=== PATIENT | male | born 1960 | race Caucasian/White ===

== ENCOUNTER 2016-11-10 10:03 | Inpatient (IN) | payer OTHER ==
--- NOTE | 2016-10-16 08:53 | PAT Medication Instructions ---
Service Date Oct 16, 2016. Current Home Medication List Celecoxib (CeleBREX), 200 MG PO BID Cyanocobalamin (Vitamin B-12), 1,000 MCG PO QAM Enalapril (Vasotec), 10 MG PO QAM Folic Acid (Folvite), 1 MG PO QAM Krill Oil (Hm Megakrill 300 mg), 1 CAP PO QAM Leflunomide (Arava), 10 MG PO QAM Methotrexate (Methotrexate), 6 TAB PO THURSDAY Multivitamin (Multivitamin), 1 TAB PO QAM Sertraline (Zoloft), 50 MG PO QAM Medication Instructions For Your Scheduled Surgery - Hold the following medications 2 weeks prior to surgery: Krill Oil (Hm Megakrill 300 mg), 1 CAP PO QAM - Check with Rheumatology if okay to hold the dose prior to surgery: Methotrexate (Methotrexate), 6 TAB PO THURSDAY - Hold the following medications the morning of surgery: Multivitamin (Multivitamin), 1 TAB PO QAM Celecoxib (CeleBREX), 200 MG PO BID (otherwise okay to continue per surgeon) Folic Acid (Folvite), 1 MG PO QAM Enalapril (Vasotec), 10 MG PO QAM Cyanocobalamin (Vitamin B-12), 1,000 MCG PO QAM - Take the following medications the morning of surgery with a sip of water OTHERWISE NOTHING TO EAT OR DRINK AFTER MIDNIGHT: Sertraline (Zoloft), 50 MG PO QAM Leflunomide (Arava), 10 MG PO QAM If you have any questions please call us at [phone] (Tamara Dsouza PA-C ) or [phone] or [phone]
[2016-10-16 09:32] LABS: BASO % 0.7 %; BASO ABS # 0.04 K/uL (0-0.2); COMPLETE YES; EOS % 1.8 %; HEMATOCRIT 45.4 % (42-52); IG% 0.5 %; LYMPH % 23.3 %; MEAN CELL VOLUME 86.3 fL (80-100); MEAN CORPUSCULAR HEMOGLOBIN 29.5 pg (25-34); MEAN CORPUSCULAR HGB CONC 34.1 g/dl (32-36); MONO % 14.7 %; PLATELET COUNT 261 K/uL (130-400); RED BLOOD COUNT 5.26 M/uL (4.7-6.1)
--- NOTE | 2016-10-16 09:34 | DIAGNOSTIC IMAGING REPORT ---
CHEST PREADMISSION(PA/LAT) CLINICAL HISTORY: Preoperative evaluation COMPARISON STUDY: Chest radiograph April 11, 2013 FINDINGS: No pneumothorax or pleural effusion is present. There is mild elevation of the right hemidiaphragm. A 1 cm left lower lobe nodule is likely unchanged since CT of April 11, 2013. There is upper lobe predominant interstitial thickening. There is asymmetric left hilar prominence. Cardiac size is normal. There is a 2.5 cm irregular density within the left upper lung. IMPRESSION: 1. Upper lobe predominant interstitial thickening and left hilar prominence which may be due to lymphadenopathy. The findings suggest interstitial lung disease and could reflect an etiology such as sarcoidosis or other granulomatous process. In addition, there may be underlying emphysema. A chest CT is recommended. The 2.5 cm irregular density within left upper lung may reflect interstitial lung disease but can be assessed at time of chest CT to exclude a nodule. 2. 1 cm left lower lobe nodule which is likely due to benign given stability since prior abdominal CT. Electronically signed by: Tanvir Beckwith M.D. 10/16/2016 9:32 AM
[2016-10-16 10:13] LABS: BUN/CREATININE RATIO 27.7 (10-20); CREATININE 0.77 mg/dl (0.60-1.40); POTASSIUM 4.7 mmol/L (3.5-5.1)
[2016-10-16 10:36] LABS: CALCIUM 9.1 mg/dl (8.5-10.1)
[2016-11-10] VITALS (8 sets, daily range): BP systolic 121–169; BP diastolic 82–98; PULSE 68–103; TEMP 36.7–37.9; O2SAT 93–98; Ht 170.2 cm; Wt 88.5 kg
[~2016-11-10] VITALS: Ht 170.2 cm; Wt 88.5 kg
--- NOTE | 2016-11-10 07:37 | History & Physical Bridge Note ---
H&P Re-Evaluation Bridge Note: I have examined the patient, reviewed the History & Physical and in the interval since the performance of the History & Physical I have noted the following changes of clinical significance: No changes noted
--- NOTE | 2016-11-10 07:38 | History and Physical ---
History & Physical Date Nov 10, 2016. Chief Complaint back and leg pain History of Present Illness The patient is a 56 year old male with complaints of Past Medical/Surgical History Medical Problems: (1) Neck Surgery 2009 Additional History Hepatic Disease: No Endocrine Disorder: No Kidney Disease: No Hypertension: Yes Heart Disease: No Bleeding Tendencies: No Infectious Diseases: No Allergies Coded Allergies: No Known Allergies (Unverified , 10/16/16) Home Medications Scheduled Celecoxib (CeleBREX), 200 MG PO BID Cyanocobalamin (Vitamin B-12), 1,000 MCG PO QAM Enalapril (Vasotec), 10 MG PO QAM Folic Acid (Folvite), 1 MG PO QAM Krill Oil (Hm Megakrill 300 mg), 1 CAP PO QAM Leflunomide (Arava), 10 MG PO QAM Methotrexate (Methotrexate), 6 TAB PO THURSDAY Multivitamin (Multivitamin), 1 TAB PO QAM Sertraline (Zoloft), 50 MG PO QAM Physical Examination Skin: warm/dry, no rash Eyes: normal inspection, EOMI, sclerae normal ENT: normal ENT inspection, pharynx normal Head: normocephalic, atraumatic Neck: supple, no adenopathy, trachea midline Respiratory/Chest: lungs clear, normal breath sounds, no respiratory distress Cardiovascular: regular rate, rhythm, no edema, no murmur Abdomen / GI: normal bowel sounds, non tender Back: normal inspection Extremities: normal inspection, normal range of motion Neurologic/Psych: no motor/sensory deficits, alert, normal reflexes, oriented x 3 Diagnosis spinal stenosis Plan of Treatment decompression fusion L3-S1
[~2016-11-10 10:03] MED LIST: ATROPINE SULFATE 0.1 MG/ML 5ML SYR IV PRN; CEFAZOLIN 2000 MG/60 ML D5W IV SCH; CLB/200 PO; CYAN10005 PO; ENAL10TA88 PO; EpHEDrine SULFATE INJ 50 MG/ML AMP IV PRN; FENTANYL CITRATE INJ 50 MCG/1 ML 2 ML VIAL IV PRN; FOLI1TAB7 PO; HYDROmorphone INJ 1 MG/ML SYR IV PRN; KRIL1CAP11 PO; LACTATED RINGER'S 1000ML 1,000 ML IV SCH; LEFL20TA PO; METH2.5T PO; MULT-506 PO; ONDANSETRON INJ 2 MG/ML 2 ML VIAL IV PRN; SERT50TA PO
[2016-11-10] MEDS ORDERED: FENTANYL CITRATE INJ 50 MCG/1 ML 2 ML VIAL ONE ×2 (12:39→16:26)
[2016-11-10] MEDS ORDERED: MIDAZOLAM HCL 1 MG/ML 2ML VIAL ONE (12:40)
[2016-11-10] MEDS ORDERED: HYDROmorphone INJ 2 MG/ML SYR/VIAL ONE (13:49)
[2016-11-10] MEDS ORDERED: PROPOFOL IV EMULSION 10 MG/ML 20 ML VIAL IV ONE (14:29)
[2016-11-10] MEDS ORDERED: ONDANSETRON INJ 2 MG/ML 2 ML VIAL ONE (14:29)
[2016-11-10] MEDS ORDERED: NEOSTIGMINE METHYLSULFATE 1 MG/ML 10ML VIAL ONE (14:29)
[2016-11-10] MEDS ORDERED: GLYCOPYRROLATE INJ 0.2 MG/ML VIAL ONE (14:29)
[2016-11-10] MEDS ORDERED: LIDOCAINE HCL 2% 2 ML VIAL (20MG/ML) ONE ×2 (14:29)
[2016-11-10] MEDS ORDERED: DEXAMETHASONE SOD INJ 4 MG/ML VIAL ONE (14:29)
[2016-11-10] MEDS ORDERED: ROCURONIUM BROMIDE 10 MG/ML 5 ML VIAL ONE (14:31)
[2016-11-10] MEDS ORDERED: EpHEDrine SULFATE 50MG/5ML SYR ONE (14:47)
[2016-11-10] MEDS ORDERED: PHENYLEPHRINE 100MCG/ML 5ML SYR ONE (14:47)
[2016-11-10] MEDS ORDERED: SODIUM CHLORIDE 0.9% 1000ML 1,000 ML IV SCH (15:58)
--- NOTE | 2016-11-10 15:58 | DIAGNOSTIC IMAGING REPORT ---
INTRAOPERATIVE FLUOROSCOPIC IMAGES OF THE LUMBAR SPINE CLINICAL HISTORY: L3-S1 DECOMPRESSION/FUSION/INTERBODY COMPARISON STUDY: Lumbar spine MRI November 19, 2015. FLUOROSCOPY TIME: 30 seconds. FINDINGS: 3 fluoroscopic images demonstrate an L5-S1 discectomy with interbody spacer placement. There is a posterior decompression. Bilateral particle screws are noted at the L3, L4, L5 and S1 levels. There are interconnecting rods. Hardware is intact. IMPRESSION: Expected findings following L5-S1 discectomy and L3-S1 bilateral pedicle screw fusion. Electronically signed by: Tanvir Beckwith M.D. 11/10/2016 3:56 PM
--- NOTE | 2016-11-10 15:58 | [facility] Post Operative Brief Note ---
Immediate Operative Summary Operative Date Nov 10, 2016. Pre-Operative Diagnosis spinal stenosis Post-Operative Diagnosis same Procedure(s) Performed L3-S1 Lumbar Laminectomy/Decompression; Posterolateral Fusion; Pedicle Screw Fixation; Application of Interbody Device; Application of AutoGRAFT and Bone Morphogentic Protein Surgeon Dr. Kenan Holley Clinical Academic Allergist Surgeon(s) Richard Arellano PA-c Estimated Blood Loss 600ML Findings stenosis/spondy Specimens NO SPECIMEN PER SURGEON
[2016-11-10] MEDS ORDERED: NALOXONE HCL 0.4 MG/1 ML VIAL/CARP IV PRN ×2 (16:00)
[2016-11-10] MEDS ORDERED: METOCLOPRAMIDE HCL INJ 5 MG/ML 2 ML VIAL IV PRN (16:00)
[2016-11-10] MEDS ORDERED: ACETAMINOPHEN 500 MG TAB PO PRN (16:00)
[2016-11-10] MEDS ORDERED: BISACODYL 10 MG SUPP PR PRN (16:00)
[2016-11-10] MEDS ORDERED: hydrOXYzine HCL 25 MG TAB PO PRN (16:00)
[2016-11-10] MEDS ORDERED: PROMETHAZINE HCL INJ 12.5 MG in SODIUM CHLORIDE 0.9% 50ML 50 ML IV PRN (16:00)
[2016-11-10] MEDS ORDERED: SOD PHOSPHATE/SOD BIPHOSPHATE ENEMA 132 ML BTL PR PRN (16:00)
[2016-11-10] MEDS ORDERED: LORAZEPAM INJ 0.5 MG in SYRINGE 0.75 ML IV PRN (16:00)
[2016-11-10] MEDS ORDERED: DO NOT ADMINISTER PNEUMOCOCCAL VACCINE PRN ×2 (16:00)
[2016-11-10] MEDS ORDERED: DO NOT ADMINISTER FLU VACCINE PRN ×3 (16:00)
[2016-11-10] MEDS ORDERED: ACETAMINOPHEN IV 100 ML IV PRN (16:00)
[2016-11-10] MEDS ORDERED: FLOSEAL HEMOSTATIC MATRIX 10ML TOP ONE (16:00)
[2016-11-10] MEDS ORDERED: ONDANSETRON INJ 2 MG/ML 2 ML VIAL IV PRN (16:00)
[2016-11-10] MEDS ORDERED: LORAZEPAM 0.5 MG TAB PO PRN (16:00)
[2016-11-10] MEDS ORDERED: BACITRACIN 50000 UNIT VIAL IR ONE (16:07)
[2016-11-10] MEDS ORDERED: BUPIVACAINE/EPINEPHRINE 0.5% MPF 1:200,000 30 ML VIAL INJ ONE (16:10)
[2016-11-10] MEDS ORDERED: HYDROmorphone HCL 0.5MG/ML 50 ML CASSETTE ONE (16:12)
--- NOTE | 2016-11-10 16:36 | Anesthesiology Progress Note ---
Anesthesia Post Op Note Date & Time Nov 10, 2016 at 16:36 Vital Signs Pain Intensity: 4 Vital Signs Past 12 Hours Date Time Temp Pulse Resp B/P Pulse Ox O2 Delivery O2 Flow Rate FiO2 11/10/16 10:29 36.9 68 18 169/98 94 Room Air Notes Mental Status: alert / awake / arousable, participated in evaluation Pt Amnestic to Procedure: Yes Nausea / Vomiting: adequately controlled Pain: adequately controlled Airway Patency, RR, SpO2: stable & adequate BP & HR: stable & adequate Hydration State: stable & adequate Anesthetic Complications: no major complications apparent
[2016-11-10] MEDS: HYDROmorphone HCL 0.5MG/ML 50 ML CASSETTE IV PRN ×3 (16:47→23:09)
[2016-11-10] MEDS: LACTATED RINGER'S 1000ML 1,000 ML IV SCH ×2 (17:35→22:36)
--- NOTE | 2016-11-10 18:08 | OPERATIVE REPORT ---
DATE OF OPERATION: 11/10/2016 PREOPERATIVE DIAGNOSES: Spinal stenosis, spondylolisthesis. POSTOPERATIVE DIAGNOSIS: Same. PROCEDURE PERFORMED: 1. Lumbar decompression, medial facetectomy, and foraminotomy L3-4, L4-5, L5-S1. 2. Posterior spinal fusion L3-4, L4-5, L5-S1. 3. Placement posterior segmental instrumentation using Orthros rods and screws L3-L4, L4-5, L5-S1. 4. Interbody fusion L5-S1. 5. Placement of PEEK cage 12 x 26 mm at L5-S1. 6. Placement of locally harvested morcellized autograft in posterior gutters. 7. Placement of Infuse collagen sponge combined with Mastergraft in the posterior gutters and Georgette bone graft in the interbody space. SURGEON: Dr. Kiran Holley. TRANSPORT OPERATIONS INSPECTOR: Melissa Arellano PA-C. Due to the complex nature of the procedure, the entire surgery was performed with the medical office assistant of THALIA Murrieta.? The marketing support assistant, under direct supervision, was involved in the actual performance of all aspects of the surgical procedure including hemostasis, tissue retraction and incision, instrument management, patient positioning, and wound closure. ANESTHESIA: General. DISPOSITION: The patient awakened and taken to PACU in stable condition. HISTORY OF PATIENT'S PROBLEMS: This is a 56-year-old male that presents with above-mentioned diagnosis. After failing an extensive course of nonoperative care, elected to undergo the above-mentioned procedure. Risks, benefits, pros, cons, and alternatives were outlined in detail preoperatively. DESCRIPTION OF PROCEDURE: The patient was met with preoperatively. The case was discussed and all questions were addressed. At that point the patient was taken back to operative suite and after undergoing successful general intubation by the department of anesthesia was placed in prone position on Shakir table atop Logan frame. All bony prominences were padded and the eyes were inspected to ensure there was no external pressure placed upon them. At this point, lumbar spine was prepped and draped in normal sterile fashion. Sharp dissection with the assistance of Bovie cautery performed down to and exposing the lamina and transverse processes of L3, L4, L5 and sacral ala bilaterally. From a caudal to cephalad fashion, complete laminectomy of L5, L4, L3 was performed addressing severe central and lateral recess disease. Pedicle screws were then placed in L3, L4, L5 and S1 levels bilaterally with the assistance of fluoroscopy and appropriate size junaid provisionally placed. Through a transforaminal approach on the left, a complete discectomy of L5-S1 was performed, endplates curetted to subcortical bleeding bone and a 12 x 26 mm PEEK cage filled with Georgette bone grafting tapped into position. Rods were then compressed, locked into final position bilaterally. A crosslink was locked into position. The transverse processes of L3, L4, L5 and sacral ala burred to subcortical bone. Infuse collagen sponge combined with Mastergraft and locally harvested morselized autograft was placed in the posterior gutters. A 7 flat STEPHANIE drain inserted. Incision closed with 1 Vicryl in the fascia, 2-0 Vicryl subcutaneously, 4-0 Monocryl for final skin closure. Steri-Strips and sterile dressing placed. The patient was awakened and taken to PACU in stable condition. I attest to the content of the Intraoperative Record and any orders documented therein. Any exceptio ns are noted below.
[2016-11-10] MEDS: DOCUSATE SODIUM/SENNA 50/8.6MG TAB PO SCH (20:41)
[2016-11-10] MEDS: CEFAZOLIN IV 2,000 MG in DEXTROSE 5% 50ML 50 ML IV SCH (21:31)
[2016-11-10] MEDS: DEXAMETHASONE INJ 6 MG in SYRINGE 0 ML IV SCH (21:32)
[2016-11-11 03:17] VITALS: BP 128/85; PULSE 82; TEMP 36.7; O2SAT 96
[2016-11-11] MEDS: LACTATED RINGER'S 1000ML 1,000 ML IV SCH (05:26)
[2016-11-11] MEDS: CEFAZOLIN IV 2,000 MG in DEXTROSE 5% 50ML 50 ML IV SCH (05:26)
[2016-11-11] MEDS: DEXAMETHASONE INJ 6 MG in SYRINGE 0 ML IV SCH ×2 (05:26→14:12)
[2016-11-11] MEDS ORDERED: HYDROmorphone INJ 1 MG/ML SYR IV PRN (06:00)
[2016-11-11] MEDS ORDERED: DC PCA SCH (06:00)
[2016-11-11 06:57] LABS: BASO % 0.1 %; BASO ABS # 0.01 K/uL (0-0.2); COMPLETE YES; HEMATOCRIT 37.6 % (42-52); IG% 0.7 %; LYMPH % 7.6 %; MEAN CELL VOLUME 86.2 fL (80-100); MEAN CORPUSCULAR HEMOGLOBIN 28.7 pg (25-34); MEAN CORPUSCULAR HGB CONC 33.2 g/dl (32-36); MEAN PLATELET VOLUME 12.3 fL (7.4-10.4); MONO % 8.1 %; NEUT % 83.5 %; PLATELET COUNT 240 K/uL (130-400); RED BLOOD COUNT 4.36 M/uL (4.7-6.1); WHITE BLOOD COUNT 15.83 K/uL (4.8-10.8)
[2016-11-11 07:30] VITALS: BP 135/76; PULSE 81; TEMP 36.9; O2SAT 97
[2016-11-11 07:33] LABS: BUN/CREATININE RATIO 18.9 (10-20); CALCIUM 8.2 mg/dl (8.5-10.1); CREATININE 1.1 mg/dl (0.60-1.40); POTASSIUM 4.1 mmol/L (3.5-5.1)
[2016-11-11] MEDS: OXYCODONE HCL IR 5 MG TAB (IMMEDIATE RELEASE) PO PRN ×4 (07:59→20:25)
--- NOTE | 2016-11-11 08:11 | Anesthesiology Progress Note ---
Anesthesia Post Op Note Date & Time Nov 11, 2016 at 08:10 Vital Signs Vital Signs Past 12 Hours Date Time Temp Pulse Resp B/P Pulse Ox O2 Delivery O2 Flow Rate FiO2 11/11/16 07:30 36.9 81 16 135/76 97 Room Air 11/11/16 03:17 36.7 82 16 128/85 96 Room Air 11/11/16 00:15 Room Air 11/10/16 23:30 36.8 99 18 121/84 94 Room Air Notes Mental Status: alert / awake / arousable, participated in evaluation Pt Amnestic to Procedure: Yes Nausea / Vomiting: adequately controlled Pain: adequately controlled Airway Patency, RR, SpO2: stable & adequate BP & HR: stable & adequate Hydration State: stable & adequate Anesthetic Complications: no major complications apparent
[2016-11-11] MEDS ORDERED: NURSING VERBAL MED ORDER ONE (08:15)
--- NOTE | 2016-11-11 08:37 | PROGRESS NOTE ---
DATE: 11/11/2016 DATE: 11/11/2016. SUBJECTIVE: Postop day 1. Back pain controlled. Leg pain improved. Vital signs stable. T-max 36.9. STEPHANIE drained 110 mL. Hematocrit this a.m. is 37.6. OBJECTIVE: On exam, the patient has good strength to testing, appears comfortable. ASSESSMENT: Status post multilevel lumbar decompression and fusion. PLAN: At this time, initiate physical therapy, advance his bowel regimen and anticipate home .
[2016-11-11] MEDS: ENALAPRIL MALEATE 10 MG TAB PO SCH (09:05)
[2016-11-11] MEDS: SERTRALINE HCL 50 MG TAB PO SCH (09:05)
[2016-11-11 11:16] VITALS: BP 133/68; PULSE 81; TEMP 37.1; O2SAT 94
[2016-11-11] MEDS: ALUMINUM/MAGNESIUM SUSP 30 ML UDC PO PRN (15:32)
[2016-11-11 16:13] VITALS: BP 148/67; PULSE 76; TEMP 37.2; O2SAT 96
[2016-11-11] MEDS: FAMOTIDINE 20 MG TAB PO PRN (16:26)
[2016-11-11] MEDS: DOCUSATE SODIUM/SENNA 50/8.6MG TAB PO SCH (20:25)
[2016-11-11 23:01] VITALS: BP 127/70; PULSE 76; TEMP 36.8; O2SAT 94
[2016-11-12] MEDS: OXYCODONE HCL IR 5 MG TAB (IMMEDIATE RELEASE) PO PRN ×6 (00:01→20:45)
[2016-11-12] MEDS: POLYETHYLENE (MIRALAX) 17 GM PACK PO SCH ×3 (05:35→17:31)
[2016-11-12 06:07] VITALS: BP 127/81; PULSE 67; TEMP 36.8; O2SAT 97
[2016-11-12] MEDS: ENALAPRIL MALEATE 10 MG TAB PO SCH (07:43)
[2016-11-12] MEDS: SERTRALINE HCL 50 MG TAB PO SCH (07:43)
[2016-11-12] MEDS: MAGNESIUM HYDROXIDE SUSP 30 ML UDC PO PRN ×2 (07:43→17:34)
[2016-11-12] MEDS ORDERED: RXC5 PO (08:40)
--- NOTE | 2016-11-12 08:41 | Discharge Instructions ---
Discharge Instructions Admission Reason for Admission: Lumbar Spinal Stenosis Discharge Discharge Diagnosis / Problem: stenosis Discharge Goals Goal(s): Improve function Activity Recommendations Activity Limitations: per Instructions/Follow-up section ACTIVITY RECOMMENDATIONS: SELF CARE INSTRUCTIONS AFTER THORACIC/LUMBAR FUSIONS 1. You may walk to your tolerance. It is good exercise for your legs and back. Expect some back and intermittent leg aches and pains. 2. You may perform "counter-top" level activities (make a sandwich, geri with a project, etc.). 3. No bending or lifting of more than 10 pounds or back twisting of any nature (roll like a log when turning in bed). 4. You may ride in a car for 20-30 minutes at a time. No driving until after your first visit with your doctor. 5. Frequent changes of position and restricting sitting to 30 minutes at a time will help limit the amount of back spasms and stiffness you may experience. 6. You may discontinue the use of ambulatory aids (cane, crutches, etc.) once your strength and confidence allow. 7. You may packaging machine supplies distributor the shower and let water strike your incision when you arrive home at least once daily. Do not take a tub bath, sit in a hot tub or go into a swimming pool until after your first recheck in the office. SPECIAL CARE INSTRUCTIONS: VERY IMPORTANT TO READ AND REVIEW A. Your surgical incision has been closed with a cosmetic suture under the skin that will dissolve in about 6 weeks. In 14 days, you can use a pair of clean scissors and cut the suture that is left outside of the skin at the ends of your incision. 1. The small skin tapes can be removed 7 days after surgery if they have not fallen off by that point. 2. You may keep the wound open to air as much as possible to promote healing after post-op day number 5 unless told otherwise by your doctor. 3. If you think the wound looks like it is becoming infected (redness or worsening drainage) and/or you are experiencing fever, chill or worsening back pain and muscle spasms, contact the office so that we may evaluate you as soon as possible. B. Complications are uncommon, but please contact us if you have any signs or symptoms of: 1. wound infection (fever higher than 102.5 degrees F, redness, separation of wound, drainage, or increasing pain from the incision) 2. blood clots in legs (pain, swelling, redness and warmth in legs) 3. urinary tract infection (fever higher than 102.5 degrees F, burning upon urination or increased frequency of urination) 4. nerve problems (inability to walk on your toes or heels, numbness, loss of bowel or bladder control) 5. any other symptoms that concern you C. Please call the office at if you have any concerns or questions about your operation or recovery. D. No smoking! Smoking drastically decreases the chance of a solid fusion. E. Do not take any anti-inflammatory medications (Indocin, Advil, Motrin, Aspirin, Naprosyn, etc.) as these may inhibit the chance of a solid fusion. Tylenol is okay to take for pain. MANAGING PAIN AFTER SPINAL SURGERY 1. Narcotic medication is intended for short-term use and will be provided for surgical pain. Surgical pain usually lasts for a period of 4-6 weeks. Narcotic medication includes Percocet, Vicodin, Darvocet, Tylenol #3 or Lortab. 2. Longer-term pain is more appropriately treated with non-narcotic medication such as Tylenol ES. 3. Muscle spasm is not appropriately treated with narcotics. Muscle relaxers such as Soma, Flexeril or Skelaxin can be used along with Tylenol ES. 4. Remember that we all live with some "aches and pains". This is not unusual or uncommon after an injury or as we get older. a. Back pain is expected and may include muscle spasms for 4 to 6 weeks after surgery. The pain should gradually improve. If the pain worsens for no apparent reason, please contact the office. b. Intermittent leg pain may also be experienced and should not be concerned about unless it worsens for no apparent reason. If so, please contact the office. 5. We will provide appropriate medication within the normal guidelines of their prescribed use. We will also be very cautious and aware of potential abuse and extended duration of patients' medication needs. a. Pain medications are for your comfort and to assist with sleep and rest so that the tissue can heal. They are not provided in order to return to normal activity and should not be used through the day. To do so or worsening pain at night can result from ongoing tissue damage and development of tolerance to the prescribed medicine. 6. Please allow 2-3 days to process refills. Prescriptions will not be mailed but must be picked up at the office. FOLLOW UP VISIT: Keep your scheduled follow-up appointment. Any questions, please call the office at . . Current Hospital Diet Patient's current hospital diet: Regular Diet Discharge Diet Recommended Diet: Regular Diet Procedures Procedures Performed: L3-S1 Lumbar Laminectomy/Decompression; Posterolateral Fusion; Pedicle Screw Fixation; Application of Interbody Device; Application of AutoGRAFT and Bone Morphogentic Protein Pending Studies Studies pending at discharge: no Medical Emergencies . Who to Call and When: Medical Emergencies: If at any time you feel your situation is an emergency, please call 911 immediately. . Non-Emergent Contact Non-Emergency issues call your: Primary Care Provider . "Provider Documentation" section prepared by Kiran Holley. VTE Core Measure Inpt VTE Proph given/why not?: Tana Hansen, SCD's
[2016-11-12] MEDS ORDERED: KETOROLAC TROMETHAMINE 30 MG/ML VIAL IV PRN (09:30)
--- NOTE | 2016-11-12 09:47 | PROGRESS NOTE ---
DATE: 11/12/2016 Postop day #2. Back pain is controlled. Leg pain markedly improved. Vital signs stable. T-max 36.8. STEPHANIE drained 50 mL over the last shift. Hematocrit this a.m. is 37.6. PHYSICAL EXAMINATION: The patient is ambulating halls, has good strength to testing, appears comfortable. ASSESSMENT: Status post multilevel lumbar decompression and fusion. PLAN: At this time, will maintain the STEPHANIE drain another 24 hours, consider home tomorrow with home health. May maintain drain depending its output.
[2016-11-12] MEDS: ALUMINUM/MAGNESIUM SUSP 30 ML UDC PO PRN (11:27)
[2016-11-12] MEDS: FAMOTIDINE 20 MG TAB PO PRN (13:50)
[2016-11-12 16:15] VITALS: BP 145/80; PULSE 78; TEMP 37.1; O2SAT 98
[2016-11-12] MEDS: DOCUSATE SODIUM/SENNA 50/8.6MG TAB PO SCH (20:44)
[2016-11-12 23:10] VITALS: BP 129/70; PULSE 89; TEMP 37.1; O2SAT 93
[2016-11-12] MEDS ORDERED: NURSING VERBAL MED ORDER ONE (23:15)
[2016-11-13] MEDS: OXYCODONE HCL IR 5 MG TAB (IMMEDIATE RELEASE) PO PRN ×3 (01:07→09:50)
[2016-11-13 07:50] VITALS: BP 157/80; PULSE 84; TEMP 37.2; O2SAT 96
[2016-11-13] MEDS: ENALAPRIL MALEATE 10 MG TAB PO SCH (08:16)
[2016-11-13] MEDS: SERTRALINE HCL 50 MG TAB PO SCH (08:16)
--- NOTE | 2016-11-13 08:38 | DISCHARGE SUMMARY ---
PRINCIPAL DIAGNOSIS: Spinal stenosis. HOSPITAL COURSE FOLLOWS: On November 10, the patient underwent multilevel lumbar decompression and fusion, tolerated this well and taken to the orthopedic floor postoperatively. Postop day #1, he was up and ambulatory, progressed to postop day #2. Postop day #3, he is doing quite well. STEPHANIE drain decreased appropriately. Subsequently discharged home. Discharge orders and instructions found on the chart for further review.
[2016-11-13 09:06] VITALS: BP 157/80; PULSE 84; TEMP 37.2; O2SAT 96
== END 2016-11-13 12:40 | disposition home health service (06) | DRG 460 ==
LOC: ENRESERVDT → ENRESERVTM → C.ACU 10:03 → C.3E 12:30
PROVIDERS: ADMIT Orthopaedic Surgery Orthopaedic Surgery of the Spine; ATTEND Orthopaedic Surgery Orthopaedic Surgery of the Spine
PROC: 0ST40ZZ Resection of Lumbosacral Disc, Open Approach (ICD-10-PCS; principal; 2016-11-10 12:30)
PROC: 0SG1071 Fusion of 2 or more Lumbar Vertebral Joints with Autologous Tissue Substitute, Posterior Approach, Posterior Column, Open Approach (ICD-10-PCS; principal; 2016-11-10 12:30)
PROC: 3E0U0GB Introduction of Recombinant Bone Morphogenetic Protein into Joints, Open Approach (ICD-10-PCS; principal; 2016-11-10 12:30)
PROC: 0SG3071 Fusion of Lumbosacral Joint with Autologous Tissue Substitute, Posterior Approach, Posterior Column, Open Approach (ICD-10-PCS; principal; 2016-11-10 12:30)
PROC: 0SG30AJ Fusion of Lumbosacral Joint with Interbody Fusion Device, Posterior Approach, Anterior Column, Open Approach (ICD-10-PCS; principal; 2016-11-10 12:30)
DX: M48.06 Spinal stenosis, lumbar region (principal); M43.16 Spondylolisthesis, lumbar region; I10 Essential (primary) hypertension; M06.9 Rheumatoid arthritis, unspecified; M19.90 Unspecified osteoarthritis, unspecified site; F41.9 Anxiety disorder, unspecified; F32.9 Major depressive disorder, single episode, unspecified; Z79.1 Long term (current) use of non-steroidal anti-inflammatories (NSAID); Z79.899 Other long term (current) drug therapy; Z87.891 Personal history of nicotine dependence

== ENCOUNTER → 2016-12-11 | Outpatient (CLI) | payer OTHER ==
[~2016-12-11] MED LIST changes: -ATROPINE SULFATE 0.1 MG/ML 5ML SYR IV PRN; -CEFAZOLIN 2000 MG/60 ML D5W IV SCH; -CLB/200 PO; -EpHEDrine SULFATE INJ 50 MG/ML AMP IV PRN; -FENTANYL CITRATE INJ 50 MCG/1 ML 2 ML VIAL IV PRN; -HYDROmorphone INJ 1 MG/ML SYR IV PRN; -LACTATED RINGER'S 1000ML 1,000 ML IV SCH; -METH2.5T PO; -ONDANSETRON INJ 2 MG/ML 2 ML VIAL IV PRN; +RXC5 PO
--- NOTE | 2016-12-11 16:41 | DIAGNOSTIC IMAGING REPORT ---
L-SPINE MIN 4 VIEWS ROUTINE CLINICAL HISTORY: Chills with fever. COMPARISON STUDY: No previous studies for comparison. FINDINGS: There are postsurgical changes of an L5-S1 discectomy and interbody fusion. There is evidence for posterior laminectomies at the L3-L4 and L5 levels. There is a posterior hardware fusion with pedicle screws at the L3-S1 levels with adjoining spinal rods. No acute fractures are visualized. There are old bilateral rib fractures. IMPRESSION: Postsurgical changes of a lumbar spinal fusion. No acute fracture. Electronically signed by: Gilbert Anaya M.D. 12/11/2016 4:39 PM Dictated Date/Time: 12/11/2016 4:38 PM
[2016-12-11 17:35] LABS: BASO % 0.5 %; BASO ABS # 0.05 K/uL (0-0.2); COMPLETE YES; EOS % 2.5 %; HEMATOCRIT 38.1 % (42-52); IG% 0.4 %; LYMPH % 29.1 %; MEAN CELL VOLUME 83.2 fL (80-100); MEAN CORPUSCULAR HEMOGLOBIN 26.9 pg (25-34); MEAN CORPUSCULAR HGB CONC 32.3 g/dl (32-36); MEAN PLATELET VOLUME 10.4 fL (7.4-10.4); MONO % 11.1 %; NEUT % 56.4 %; PLATELET COUNT 568 K/uL (130-400); RED BLOOD COUNT 4.58 M/uL (4.7-6.1); WHITE BLOOD COUNT 9.62 K/uL (4.8-10.8)
[2016-12-11 17:52] LABS: ALT/SGPT 22 U/L (12-78); AST/SGOT 13 U/L (15-37); BLOOD UREA NITROGEN 16 mg/dl (7-18); BUN/CREATININE RATIO 18.2 (10-20); CALCIUM 8.6 mg/dl (8.5-10.1); CARBON DIOXIDE 28 mmol/L (21-32); CHLORIDE 105 mmol/L (98-107); CREATININE 0.88 mg/dl (0.60-1.40); GLUCOSE 93 mg/dl (70-99); POTASSIUM 3.6 mmol/L (3.5-5.1); SODIUM 141 mmol/L (136-145)
[2016-12-11 17:55] LABS: ALB/GLOB RATIO 0.8 (0.9-2); ALKALINE PHOSPHATASE 106 U/L (45-117); C-REACTIVE PROTEIN 4.46 mg/dl (0-0.29); CHOLESTEROL 160 mg/dl (0-200); CHOLESTEROL/HDL RATIO 5.2; HDL CHOLESTEROL 31 mg/dl; LDL CHOLESTEROL CALCULATED 73 mg/dl; TRIGLYCERIDES 279 mg/dl (0-150); VERY LOW DENSITY LIPOPROT CALC 56 mg/dl
== END | disposition home or self-care (01) ==
LOC: C.RAD1850 16:01
PROVIDERS: ATTEND Internal Medicine
DX: R50.9 Fever, unspecified (principal); Z98.890 Other specified postprocedural states; E78.5 Hyperlipidemia, unspecified

== ENCOUNTER → 2016-12-17 | Outpatient (CLI) | payer OTHER ==
[2016-12-19 10:19] LABS: QUANTIF TB AG-NIL <0.00 IU/ML; QUANTIFERON NIL 0.09 IU/ML
== END | disposition home or self-care (01) ==
LOC: C.LAB1850 13:04
PROVIDERS: ATTEND Internal Medicine Critical Care Medicine
DX: M06.9 Rheumatoid arthritis, unspecified (principal); R91.8 Other nonspecific abnormal finding of lung field; D84.9 Immunodeficiency, unspecified

== ENCOUNTER → 2016-12-30 | Outpatient (CLI) | payer OTHER ==
[2016-12-30 10:59] LABS: BASO % 0.7 %; BASO ABS # 0.05 K/uL (0-0.2); COMPLETE YES; EOS % 1.5 %; HEMATOCRIT 42.1 % (42-52); IG% 0.5 %; LYMPH % 27.8 %; MEAN CELL VOLUME 79.9 fL (80-100); MEAN CORPUSCULAR HEMOGLOBIN 26.2 pg (25-34); MEAN CORPUSCULAR HGB CONC 32.8 g/dl (32-36); MEAN PLATELET VOLUME 11.1 fL (7.4-10.4); NEUT % 58.5 %; PLATELET COUNT 431 K/uL (130-400); RED BLOOD COUNT 5.27 M/uL (4.7-6.1); WHITE BLOOD COUNT 7.55 K/uL (4.8-10.8)
== END | disposition home or self-care (01) ==
LOC: C.LAB1850 09:00
PROVIDERS: ATTEND Orthopaedic Surgery Orthopaedic Surgery of the Spine
DX: M48.06 Spinal stenosis, lumbar region (principal)

== ENCOUNTER → 2017-02-03 | Outpatient (CLI) | payer OTHER ==
--- NOTE | 2017-02-03 08:41 | DIAGNOSTIC IMAGING REPORT ---
LEFT HAND MIN 3 VIEWS ROUTINE CLINICAL HISTORY: RHEUMATOID ARTHRITIS COMPARISON: None. DISCUSSION: No acute fractures are visualized. There is joint space narrowing most pronounced the level of the second and third metacarpal phalangeal joints. There is a corticated ossicle located on the radial aspect of the trapezium. No erosive changes are visualized. IMPRESSION: 1. No acute fractures 2. Arthritic changes with joint space narrowing at the level of the second and third metacarpal phalangeal joints 3. No definite erosions Electronically signed by: Gilbert Anaya M.D. 02/03/2017 8:40 AM Dictated Date/Time: 02/03/2017 8:39 AM
--- NOTE | 2017-02-03 08:50 | DIAGNOSTIC IMAGING REPORT ---
RIGHT FOOT 2 VIEWS CLINICAL HISTORY: Rheumatoid arthritis COMPARISON: None. DISCUSSION: The bony mineralization appears normal for age. No fractures are visualized. There are no erosive or destructive changes. There is a small plantar calcaneal spur. There is a 5 mm mixed attenuation lesion involving the medial base of the distal phalanx the great toe. This demonstrates a sclerotic rim and has a nonaggressive appearance.. IMPRESSION: 1. Incidental 5 mm lesion involving the medial base of the distal phalanx the great toe. This appears nonaggressive 2. No evidence of fracture 3. No evidence of erosive disease 4. Plantar calcaneal spur Electronically signed by: Gilbert Anaya M.D. 02/03/2017 8:49 AM Dictated Date/Time: 02/03/2017 8:47 AM
--- NOTE | 2017-02-03 08:53 | DIAGNOSTIC IMAGING REPORT ---
RIGHT HAND MIN 3 VIEWS ROUTINE CLINICAL HISTORY: Rheumatoid arthritis. COMPARISON: Right hand radiograph October 27, 2013. FINDINGS: Note is made of moderate joint space narrowing of the right second metacarpophalangeal joint. Adjacent cortical irregularity could reflect reflect erosions. There is a lucency within the base of the proximal phalanx of the right second finger which is unchanged since prior exam. The appearance of the right hand is similar to study of October 27, 2013. No acute fracture is identified. A lucent lesion within the distal phalanx of the right fifth finger is unchanged since prior exam as well. This is mildly expansile. This has benign imaging characteristics. There is mild osteoarthritis within several interphalangeal joints within the right hand. This is similar to prior exam. There is mild radiocarpal joint space narrowing. IMPRESSION: No significant change in appearance of the right hand since exam of October 27, 2013. Moderate joint space narrowing of the right second metacarpophalangeal joint with possible adjacent erosions. Mild joint space narrowing of the right third metacarpophalangeal joint, similar to prior study. The findings favor rheumatoid arthritis. Electronically signed by: Tanvir Beckwith M.D. 02/03/2017 8:52 AM Dictated Date/Time: 02/03/2017 8:48 AM
--- NOTE | 2017-02-03 08:55 | DIAGNOSTIC IMAGING REPORT ---
LEFT FOOT 2 VIEWS CLINICAL HISTORY: Rheumatoid arthritis. COMPARISON: None FINDINGS: Alignment of the left foot is anatomic. No erosions are identified. There is minimal joint space narrowing and osteophytosis of the interphalangeal joint of the left great toe which likely reflects osteoarthritis. IMPRESSION: 1. No acute fracture or dislocation of the left foot. 2. No radiographic evidence of an erosive/inflammatory arthropathy within the left foot. Electronically signed by: Tanvir Beckwith M.D. 02/03/2017 8:53 AM Dictated Date/Time: 02/03/2017 8:52 AM
== END | disposition home or self-care (01) ==
LOC: C.RAD 07:56
PROVIDERS: ATTEND Internal Medicine Rheumatology
DX: M05.79 Rheumatoid arthritis with rheumatoid factor of multiple sites without organ or systems involvement (principal); M25.871 Other specified joint disorders, right ankle and foot; M77.31 Calcaneal spur, right foot

== ENCOUNTER → 2017-02-03 | Outpatient (CLI) | payer OTHER | END | disposition home or self-care (01) | LOC: C.LAB1850 07:21 | PROVIDERS: ATTEND Internal Medicine Rheumatology | DX: M05.79 Rheumatoid arthritis with rheumatoid factor of multiple sites without organ or systems involvement (principal) ==

== ENCOUNTER → 2017-02-03 | Outpatient (CLI) | payer OTHER ==
[2017-02-03 09:38] LABS: BASO % 0.7 %; BASO ABS # 0.05 K/uL (0-0.2); COMPLETE YES; EOS % 3.3 %; HEMATOCRIT 42.9 % (42-52); IG% 0.3 %; LYMPH % 29.5 %; LYMPH ABS # 2.08 K/uL (1.2-3.4); MEAN CELL VOLUME 78.9 fL (80-100); MEAN CORPUSCULAR HEMOGLOBIN 25.7 pg (25-34); MEAN CORPUSCULAR HGB CONC 32.6 g/dl (32-36); MEAN PLATELET VOLUME 12.6 fL (7.4-10.4); MONO % 14.6 %; NEUT % 51.6 %; PLATELET COUNT 307 K/uL (130-400); RED BLOOD COUNT 5.44 M/uL (4.7-6.1); WHITE BLOOD COUNT 7.05 K/uL (4.8-10.8)
== END | disposition home or self-care (01) ==
LOC: C.LAB1850 07:14
PROVIDERS: ATTEND Orthopaedic Surgery Orthopaedic Surgery of the Spine
DX: M54.16 Radiculopathy, lumbar region (principal)

== ENCOUNTER → 2017-03-11 | Outpatient (CLI) | payer OTHER ==
--- NOTE | 2017-03-25 18:09 | PULMONARY FUNCTION TEST ---
Interpretation is based of ATS criteria SPIROMETRY: Mild obstructive ventilatory disease with an FEV1 of 94% and no significant reversibility. LUNG VOLUMES: Mild hyperinflation with a residual volume of 208%. DIFFUSION CAPACITY: Within normal limits. INTERPRETATION: Mild obstructive ventilatory disease.
== END | disposition home or self-care (01) ==
LOC: C.RC 13:57
PROVIDERS: ATTEND Internal Medicine Critical Care Medicine
DX: D84.9 Immunodeficiency, unspecified (principal)

== ENCOUNTER 2019-11-21 07:54 | Inpatient (IN) ==
--- NOTE | 2019-11-04 09:35 | PAT Medication Instructions ---
Medication Instructions Date of Service November 04, 2019 Home Medications Medication Instructions Recorded lansoprazole 15 mg capsule,delayed 15 mg PO BID #60 cap 05/05/19 release fluticasone propionate 50 2 sprays INTNAS BID #47.4 gm 05/09/19 mcg/actuation nasal spray,suspension enalapril maleate 20 mg tablet 20 mg PO BID #180 tab 08/15/19 sildenafil 50 mg tablet 50 mg PO DAILY PRN #30 tab 10/04/19 lansoprazole 15 mg capsule,delayed release 15 mg PO BID fluticasone propionate 50 mcg/actuation nasal spray,suspension 2 sprays INTNAS BID celecoxib 200 mg capsule 200 mg PO QAM krill oil 500 mg capsule 500 mg PO QAM multivitamin 1 tab PO QAM pregabalin 75 mg capsule 75 mg PO BID enalapril maleate 20 mg tablet 20 mg PO BID sildenafil 50 mg tablet 50 mg PO DAILY PRN hydrocodone 5 mg-acetaminophen 325 mg tablet 1 tab PO DAILY PRN leflunomide 20 mg tablet 20 mg PO QAM cholecalciferol (vitamin D3) [Vitamin D3] 1,000 unit PO QAM hydrochlorothiazide 25 mg PO QAM nifedipine 60 mg PO QAM ASK your surgeon for instructions celecoxib 200 mg capsule 200 mg PO QAM ASK your prescriber and surgeon leflunomide 20 mg tablet 20 mg PO QAM STOP taking 2 weeks before surgery (or as soon as possible if surgery is within 2 weeks) krill oil 500 mg capsule 500 mg PO QAM DO NOT take the morning of surgery multivitamin 1 tab PO QAM enalapril maleate 20 mg tablet 20 mg PO BID sildenafil 50 mg tablet 50 mg PO DAILY PRN cholecalciferol (vitamin D3) [Vitamin D3] 1,000 unit PO QAM hydrochlorothiazide 25 mg PO QAM Take morning of surgery With a small sip of water, OTHERWISE NOTHING TO EAT OR DRINK AFTER MIDNIGHT: lansoprazole 15 mg capsule,delayed release 15 mg PO BID fluticasone propionate 50 mcg/actuation nasal spray,suspension 2 sprays INTNAS BID pregabalin 75 mg capsule 75 mg PO BID hydrocodone 5 mg-acetaminophen 325 mg tablet 1 tab PO DAILY PRN (okay to take up to 4 hours prior to surgery if needed) nifedipine 60 mg PO QAM Take evening before surgery lansoprazole 15 mg capsule,delayed release 15 mg PO BID fluticasone propionate 50 mcg/actuation nasal spray,suspension 2 sprays INTNAS BID pregabalin 75 mg capsule 75 mg PO BID enalapril maleate 20 mg tablet 20 mg PO BID sildenafil 50 mg tablet 50 mg PO DAILY PRN (if needed) hydrocodone 5 mg-acetaminophen 325 mg tablet 1 tab PO DAILY PRN (if needed) Other Notes If you have any questions please call us at [phone] or [phone] or [phone] or [phone]
--- NOTE | 2019-11-07 08:52 | Anesthesiology Consultation ---
Date of Service November 07, 2019 Assessment & Plan (1) Encounter for pre-operative examination: Awaiting review of preop testing (labs, c-spine xray). Chart Review Chart Review: Patient seen in Pre Admission Testing Teaching & Discussion Pre-Anesthesia Teaching/Discussion Notes: Instructed NPO after midnight before surgery,except medications with 15 cc of water. Medication instructions p rovided according to the PAT guidelines. History Surgery Operation Date: 11/21/19 07:45 Proposed Procedures p L2-L3 Decompression/Fusion, Hardware Removal L3-S1, Spinal Cord Monitoring - Kiran Holley, Height/Weight Height: 5 ft 7 in Weight: 79 kg Allergies Allergy/AdvReac Type Severity Reaction Status Date / Time Ativan TABS Allergy Unknown unknown Uncoded 11/07/19 09:02 reaction Medications Home Medications Medication Instructions Recorded Confirmed Last Taken lansoprazole 15 mg capsule,delayed 15 mg PO BID #60 cap 05/05/19 10/31/19 Unknown release fluticasone propionate 50 2 sprays INTNAS BID #47.4 gm 05/09/19 10/31/19 Unknown mcg/actuation nasal spray,suspension celecoxib 200 mg capsule 200 mg PO QAM 07/12/19 10/31/19 Unknown krill oil 500 mg capsule 500 mg PO QAM cap 07/12/19 10/31/19 Unknown multivitamin 1 tab PO QAM 07/12/19 10/31/19 Unknown pregabalin 75 mg capsule 75 mg PO BID 07/12/19 10/31/19 Unknown enalapril maleate 20 mg tablet 20 mg PO BID #180 tab 08/15/19 10/31/19 Unknown sildenafil 50 mg tablet 50 mg PO DAILY PRN #30 tab 10/04/19 10/31/19 Unknown hydrocodone 5 mg-acetaminophen 325 1 tab PO DAILY PRN 10/05/19 10/31/19 Unknown mg tablet leflunomide 20 mg tablet 20 mg PO QAM 10/05/19 10/31/19 Unknown cholecalciferol (vitamin D3) 1,000 unit PO QAM 10/31/19 10/31/19 Unknown [Vitamin D3] hydrochlorothiazide 25 mg PO QAM 10/31/19 10/31/19 Unknown nifedipine 60 mg PO QAM 10/31/19 10/31/19 Unknown Past Medical History Medical History Anxiety per PCP records Arthritis Back pain B/L LE radiculopathy COPD (chronic obstructive pulmonary disease) per PCP records and imaging/patient denies/no inhalers GERD (gastroesophageal reflux disease) controlled Hypertension Interstitial lung disease per PCP records and imaging/patient denies/no inhalers Lung nodule under surveillance per PCP Rheumatoid arthritis per PCP records/on leflunomide Exercise / Class Metabolic Activity III < 4 Walking/Shop/Light housework Past Family History Family History Mother Ovarian cancer Breast cancer Father Heart disease Hypertension Past Surgical History Surgical History History of arthroscopy of left knee Hx of colonoscopy Hx of discectomy Hx of hernia repair Social History Smoking Status: Former smoker Smoking cigarettes per day: 20-40 Do You Dip or Chew Tobacco: No Smoking End Date: 2002 Hx Alcohol Use: No Hx Substance Use: No Review of Systems Reflux controlled. Patient denies chest pain, shortness of breath, dyspnea on exertion, cough, wheezing, palpitations. Physical Exam Vital Signs VITALS BP 137/79 P 70 TEMP 98.5 SP02 98%RA RESP 18 PHYSICAL Full neck and c-spine range of motion. Full TMJ range of motion. TMD 3 finger breaths Mallampati Score 3 Dentition: sides/molars missing, upper front right side capped tooth Lungs: clear throughout to auscultation Cardiac: regular rate and rhythm, no murmurs noted Spine: normal Carotid arteries: negative bruit Extremities: no edema Testing Laboratory Results 10/31/19 HGBA1C 5.8% SODIUM 142 POTASSIUM 4.2 CHLORIDE 108 CO2 26 BUN 16 CREATININE 0.84 GLUCOSE 95 Electrocardiogram Date: 07/12/19 SR at 72bpm. Echocardiogram Date: 03/02/18 EF 60-65%. Mild cLVH. Grade I DD. No RWMA. No significant valvular disease. Other Testing Chest CT: 10/17/19: stable interstitial lung disease. Stable shotty mediastinal adenopathy. PCP monitoring. Carotid doppler: 07/15/19: No hemodynamically significant stenosis seen within the carotid arteries. Ultrasound Abdomen: 07/15/19: No evidence for an abdominal aortic aneurysm. 2. Mildly ectatic left common iliac artery measuring 1.2 cm in diameter.
--- NOTE | 2019-11-07 09:49 | XRay Report ---
XR cervical spine 2 or 3V CLINICAL HISTORY: RHEUMATOID ARTHRITIS. Preop. COMPARISON STUDY: None. FINDINGS: The cervical spine is visualized from C1 through T1. There is straightening of the cervical spine. Anterior cervical discectomy and fusion at C4-C5. The hardware appears intact. Moderate disc space narrowing at C3-C4 and mild disc space narrowing at C6-C7 with endplate osteophytes. Mild-to-mo derate facet degenerative changes throughout the cervical spine. Prevertebral soft tissues and the C1 -C2 interval are intact. Alignment remains intact throughout traction and extension. Mild periprosthe tic lucency surrounding the C4 screws. This could represent loosening. IMPRESSION: 1. Alignment remains intact throughout flexion and extension. 2. C4-C5 ACDF. There is mild periprosthetic lucency surrounding the C4 screws which could represent l oosening. ACT 112: Negative or not required by law. Electronically signed by: Eliazar Marrufo M.D. 11/07/2019 9:48 AM
[2019-11-07 10:02] LABS: Basophils # (auto) 0.07 K/uL (0-0.2); Basophils % (auto) 1.1 %; Eosinophils # (auto) 0.47 K/uL (0-0.5); Eosinophils % (auto) 7.5 %; Hematocrit (blood only) 48.1 % (42-52); Hemoglobin 15.9 g/dL (14.0-18.0); Immature Granulocytes # (auto) 0.03 K/uL (0.00-0.02); Immature Granulocytes % (auto) 0.5 %; Lymphocytes # (auto) 1.66 K/uL (1.2-3.4); Lymphocytes % (auto) 26.3 %; Mean Corpuscular Hemoglobin 28.5 pg (25-34); Mean Corpuscular Hgb Conc 33.1 g/dL (32-36); Mean Corpuscular Volume 86.2 fL (80-100); Mean Platelet Volume 11.7 fL (7.4-10.4); Monocytes # (auto) 0.68 K/uL (0.11-0.59); Monocytes % (auto) 10.8 %; Neutrophils # (auto) 3.39 K/uL (1.4-6.5); Neutrophils % (auto) 53.8 %; Platelet Count 263 K/uL (130-400); RDW Coefficient of Variation 13.6 % (11.5-14.5); RDW Standard Deviation 42.8 fL (36.4-46.3); Red Blood Count 5.58 M/uL (4.7-6.1)
[2019-11-07 10:03] LABS: Appearance Urine Clear (Clear); Bilirubin Urine Negative (Negative); Blood Urine Negative (Negative); Color Urine Yellow; Glucose Urine UA Negative (Negative); Ketones Urine Negative (Negative); Leukocyte Esterase Urine Negative (Negative); Nitrite Urine Negative (Negative); Protein Urine Negative (Negative); Specific Gravity Urine 1.007 (1.000-1.030); Urobilinogen Urine Negative (Negative); pH Urine 6.5 (4.5-7.5)
[2019-11-07 10:11] LABS: Partial Thromboplastin Ratio 0.9; Partial Thromboplastin Time 25.3 Seconds (21.0-31.0); Prothrombin Time 9.9 Seconds (9.0-12.0)
[2019-11-07 10:56] LABS: BUN Creatinine Ratio 14.9 (10-20); Calcium 10.1 mg/dl (8.5-10.1); Creatinine Clr Calc Pharmacy 74.2 ml/min; Est GFR (African American) 95.5; Est GFR (Non-African American) 82.4; Potassium 5.1 mmol/L (3.5-5.1)
[~2019-11-21 07:54] MED LIST changes: +ACETAMINOPHEN 500 MG TAB PO SCH; +CEFAZOLIN 1000MG 1,000 MG/7.5 ML SYR IV SCH; -CYAN10005 PO; +CeleBREX 200 MG CAP PO SCH; -ENAL10TA88 PO; -FOLI1TAB7 PO; +GABAPENTIN 600 MG DOSE PO SCH; -KRIL1CAP11 PO; -LEFL20TA PO; +LR 15ML/HR IV SCH; -MULT-506 PO; -RXC5 PO; -SERT50TA PO
[2019-11-21] MEDS ORDERED: MIDAZOLAM HCL 1 MG/ML 2ML VIAL ONE (08:20)
[2019-11-21] MEDS ORDERED: LIDOCAINE HCL 2% 2 ML VIAL/AMP(20MG/ML) INFIL ONE (08:20)
[2019-11-21] MEDS ORDERED: ONDANSETRON INJ 2 MG/ML 2 ML VIAL ONE (08:20)
[2019-11-21] MEDS ORDERED: DEXAMETHASONE SOD INJ 4 MG/ML VIAL ONE ×2 (08:20→10:42)
[2019-11-21] MEDS ORDERED: NEOSTIGMINE METHYLSULFATE 1 MG/ML 10ML VIAL ONE (08:20)
[2019-11-21] MEDS ORDERED: fentaNYL citrate 100 MCG/2 ML VIAL ONE (08:20)
[2019-11-21] MEDS ORDERED: GLYCOPYRROLATE 0.2 MG/ML VIAL ONE (08:20)
[2019-11-21] MEDS ORDERED: PROPOFOL IV EMULSION 10 MG/ML 20 ML VIAL IV ONE (08:20)
--- NOTE | 2019-11-21 08:54 | History & Physical Bridge Note ---
Date of Service November 21, 2019 History & Physical Bridge Note I have examined the patient, reviewed the History & Physical and in the interval since the performance of the History & Physical I have noted the following changes of clinical significance: no changes noted
--- NOTE | 2019-11-21 08:55 | History & Physical Report ---
Date of Service November 21, 2019 Assessment & Plan (1) Neurogenic claudication due to lumbar spinal stenosis: L2-L3 decompression fusion, hardware removal L3-S1. Present on Admission?: Yes History of Present Illness Chief Complaint: Back and leg pain Primary Care Provider: Maggy Carrington MD This is a 5-year-old male well-known to me that presents with worsening back and leg pain. After failing extensive course of nonoperative care is here for surgical invention. Allergies Allergy/AdvReac Type Severity Reaction Status Date / Time Ativan TABS Allergy Unknown unknown Uncoded 11/10/19 07:52 reaction Home Medications Home Medications Medication Instructions Recorded Confirmed Type lansoprazole 15 mg capsule,delayed 15 mg PO BID #60 cap 05/05/19 11/21/19 Rx release fluticasone propionate 50 2 sprays INTNAS BID #47.4 gm 05/09/19 11/21/19 Rx mcg/actuation nasal spray,suspension celecoxib 200 mg capsule 200 mg PO QAM 07/12/19 11/21/19 History krill oil 500 mg capsule 500 mg PO QAM cap 07/12/19 11/21/19 History multivitamin 1 tab PO QAM 07/12/19 11/21/19 History pregabalin 75 mg capsule 75 mg PO BID 07/12/19 11/21/19 History enalapril maleate 20 mg tablet 20 mg PO BID #180 tab 08/15/19 11/21/19 Rx sildenafil 50 mg tablet 50 mg PO DAILY PRN #30 tab 10/04/19 11/21/19 Rx hydrocodone 5 mg-acetaminophen 325 1 tab PO DAILY PRN 10/05/19 11/21/19 History mg tablet leflunomide 20 mg tablet 20 mg PO QAM 10/05/19 11/21/19 History cholecalciferol (vitamin D3) 1,000 unit PO QAM 10/31/19 11/21/19 History [Vitamin D3] hydrochlorothiazide 25 mg PO QAM 10/31/19 11/21/19 History nifedipine 60 mg PO QAM 10/31/19 11/21/19 History Past Med/Surg History Medical History Anxiety per PCP records Arthritis Back pain B/L LE radiculopathy COPD (chronic obstructive pulmonary disease) per PCP records and imaging/patient denies/no inhalers GERD (gastroesophageal reflux disease) controlled Hypertension Interstitial lung disease per PCP records and imaging/patient denies/no inhalers Lung nodule under surveillance per PCP Rheumatoid arthritis per PCP records/on leflunomide Surgical History History of arthroscopy of left knee Hx of colonoscopy Hx of discectomy Hx of hernia repair Family History Mother Ovarian cancer Breast cancer Father Heart disease Hypertension Social History Preferred Language: Somali Communication Ability: Effective Visual Impairment: No Limitations Hearing Ability: Normal Director Corporate Security Required: No Beliefs That Will Affect Care: None marital status: Current Living Situation: Alone current occupational status: employed Feels Safe at Home: Yes Safety Concerns: Feels Safe At This Time Smoking Status: Former smoker Age Started Using Tobacco: 15 ; Age Quit Using Tobacco: 44 ; packs per day: 1.5 ; Cigarettes Per Day: 20-40 ; Do You Dip or Chew Tobacco: No ; Smoking End Date: 2002 ; Second Hand Exposure: No ; Hx Alcohol Use: No Hx Substance Use: No Childhood Exposure to Second-Hand Smoke: No Dental Care, Regularly: Yes Physical Activity Frequency: 3-4 Times per Week Seatbelt Use: always Sunscreen Use: No Physical Exam Physical Exam: Patient is alert and oriented neurologically intact. Results & Data Vital Signs (Past 12 Hours) Vital Signs Temp Pulse Resp BP Pulse Ox 11/21/19 08:00 36.5 C 73 20 144/85 H 97
[2019-11-21] MEDS ORDERED: ePHEDrine sulfate 50 MG/ML AMP IV PRN (09:10)
[2019-11-21] MEDS ORDERED: ATROPINE SULFATE 0.1 MG/ML 10ML SYR IV PRN (09:10)
[2019-11-21] MEDS ORDERED: HYDROmorphone INJ 2 MG/ML SYR/VIAL IV PRN (09:10)
[2019-11-21] MEDS ORDERED: ONDANSETRON INJ 2 MG/ML 2 ML VIAL IV PRN ×2 (09:10→13:14)
[2019-11-21] MEDS ORDERED: BACITRACIN INJ 50,000 UNIT VIAL ONE (09:12)
[2019-11-21] MEDS ORDERED: BUPIVACAINE 0.5 % 5 MG/1 ML MPF 30ML VIAL ONE (09:13)
[2019-11-21] MEDS ORDERED: EPINEPHrine INJ 1 MG/ML AMP ONE (09:14)
[2019-11-21] MEDS ORDERED: HYDROmorphone INJ 2 MG/ML SYR/VIAL ONE (09:53)
[2019-11-21] MEDS ORDERED: ROCURONIUM BROMIDE 10 MG/ML 5 ML VIAL ONE (10:06)
[2019-11-21] MEDS ORDERED: FLOSEAL HEMOSTATIC MATRIX 10ML TOP ONE (10:22)
[2019-11-21] MEDS ORDERED: PHENYLEPHRINE 100MCG/ML 5ML SYR ONE (10:41)
[2019-11-21] MEDS ORDERED: ePHEDrine sulfate 50 MG/ML SYR ONE (10:41)
--- NOTE | 2019-11-21 11:23 | Operative Report ---
Post Operative Report Pre & Post Diagnosis Operation Date: 11/21/19 09:25 Pre-Op Diagnosis: Lumbar spinal stenosis with neurogenic claudication Post-Op Diagnosis: Same I identified the patient and participated in the time-out.: Yes Procedure Operation Date: 11/21/19 09:25 Actual Procedures #1 removal of posterior segmental instrumentation L3-S1. #2 exploration of fusion L3-S1. #3 lumbar decompression with bilateral medial facetectomies foraminotomies L2-3. #4 posterior spinal fusion L2-3. #5 placed posterior instrumentation L2-3. #6 interbody fusion L2-3. #7 placed a peek cage 12 x 26 mm at L2-3. #8 placement locally harvested morselized autograft in the posterior lateral gutters. #9 placement infuse collagen sponge, master graft in the posterior lateral gutters and ostial amp and interbody space. Surgeon Kiran Holley DO Process Safety Engineering Technologist Melissa Zhao Estimated Blood Loss 200 Findings Consistent with Post-Op Diagnosis Specimens None Indications This is a 59-year-old male known to me the presents with above-mentioned diagnosis after failed extensive course of nonoperative care is here for surgical intervention. Description of Procedure Patient was met with identified informed consent obtained. Patient was then taken to the operative suite underwent an patient placed in a prone position the Shakir table on top of the Logan frame. All bony prominences well-padded eyes inspected to ensure no external pressure placed upon the great this point the lumbar spine was prepped and draped in a sterile fashion. Sharp dissection with the assistance of Bovie cautery was performed down to and exposing the lamina and transverse processes of L to and instrumentation at L3-L4-L5 and S1 levels bilaterally. Then proceeded move the hardware at L3-L4-L5 and S1 bilaterally explore the fusion mass noting to be mature and intact. And then performed complete laminectomy of L2 including bilateral medial facetectomies and foraminotomies addressing severe stenosis. Pedicle screws were then placed in L2 and L3 and the probably size junaid placed. By way of a transforaminal approach on the right complete discectomy was performed endplates curetted to subcortical and bone and a 12 x 26 mm peek cage filled with osteo-bone graft tapped in position. The rods then compressed locked in final position bilaterally. The transverse processes of L2 and L3 burred to subcortical bleeding bone. Infuse collagen sponge master graft local autograft placed in the posterior lateral gutters. 15 round STEPHANIE drain inserted. The incision was then closed with 1 Vicryl the fascia 2-0 Vicryl subcutaneously and 4 Monocryl for final skin closure. Steri-Strips dressings placed. Patient will continue PACU stable condition. Please note Melissa Zhao present at the entire procedure involved the patient positioning complex portions of the surgery and final skin closure. Lastly spinal cord monitoring was utilized that the procedure no changes noted. I attest to the content of the Intraoperative Record and any orders documented therein. Any exceptions are noted below.
[2019-11-21] MEDS: fentaNYL citrate 100 MCG/2 ML VIAL IV PRN ×2 (11:54→11:59)
--- NOTE | 2019-11-21 12:30 | Fluoroscopy Report ---
INTRAOPERATIVE RADIOGRAPHS CLINICAL HISTORY: L2-L3 spinal fusion. Hardware removal. Fluoroscopy time: 16 seconds. FINDINGS: 2 spot fluoroscopic views of the lumbar spine are presented. There has been discectomy at L 2-L3 with laminectomy and posterior fusion at this level. Interpedicular screws are in place. The ort hopedic hardware appears intact. IMPRESSION: Intraoperative radiographs from L2-L3 spinal fusion as above. Electronically signed by: Gurdeep Patel M.D. 11/21/2019 12:29 PM
--- NOTE | 2019-11-21 12:43 | Anesthesiology Progress Note ---
Date of Service November 21, 2019 Anesthesia Post Procedure Vital Signs Vital Signs: Temp Pulse Pulse Resp BP Pulse Ox 11/21/19 12:30 37.2 C 61 12 119/63 96 11/21/19 12:20 37.2 C 63 16 118/71 95 11/21/19 12:10 64 14 117/73 97 11/21/19 12:00 68 18 130/72 97 11/21/19 11:50 65 16 139/79 96 11/21/19 11:44 36.6 C 74 16 131/72 96 11/21/19 08:00 36.5 C 73 20 144/85 H 97 Pain Intensity Lower Back: Pain Intensity: 2 Transfer of Care Handoff Completed per policy Notes Mental Status: alert / awake / arousable and participated in evaluation Patient Amnestic to Procedure: Yes Nausea / Vomiting: adequately controlled Pain: adequately controlled Airway Patency, RR, SpO2: stable & adequate BP & HR: stable & adequate Hydration State: stable & adequate Anesthetic Complications: no major complications apparent and Pt Satisfied with anesthetic care
[2019-11-21] MEDS ORDERED: HYDROmorphone INJ 0.5 MG/0.5 ML SYR IV PRN (13:14)
[2019-11-21] MEDS ORDERED: LORazepam 0.5 MG/1 ML VIAL IV PRN (13:14)
[2019-11-21] MEDS ORDERED: SOD PHOSPHATE/SOD BIPHOSPHATE ENEMA 132 ML BTL PR PRN (13:14)
[2019-11-21] MEDS ORDERED: LORazepam 0.5 MG TAB PO PRN (13:14)
[2019-11-21] MEDS ORDERED: HYDROmorphone INJ 1 MG/ML SYRINGE IV PRN (13:14)
[2019-11-21] MEDS ORDERED: ACETAMINOPHEN 500 MG TAB PO PRN (13:14)
[2019-11-21] MEDS ORDERED: PROMETHAZINE HCL 12.5 MG in SODIUM CHLORIDE 0.9% 50 ML IV PRN (13:14)
[2019-11-21] MEDS ORDERED: DO NOT ADMINISTER FLU VACCINE PRN (13:14)
[2019-11-21] MEDS ORDERED: ALUMINUM/MAGNESIUM SUSP 30 ML UDC PO PRN (13:14)
[2019-11-21] MEDS ORDERED: TRAMADOL HCL 50 MG TABLET PO PRN (13:14)
[2019-11-21] MEDS ORDERED: NALOXONE HCL 0.4 MG/1 ML VIAL/CARP IV PRN (13:14)
[2019-11-21] MEDS ORDERED: METOCLOPRAMIDE HCL INJ 5 MG/ML 2 ML VIAL IV PRN (13:14)
[2019-11-21] MEDS ORDERED: ACETAMINOPHEN 1,000 MG/100 ML VIAL IV PRN (13:14)
[2019-11-21] MEDS ORDERED: bisacodyL 10 MG SUPP PR PRN (13:14)
[2019-11-21] MEDS ORDERED: FAMOTIDINE 20 MG TAB PO PRN (13:14)
[2019-11-21] MEDS ORDERED: DO NOT ADMINISTER PNEUMOCOCCAL VACCINE PRN (13:14)
[2019-11-21] MEDS ORDERED: MAGNESIUM HYDROXIDE SUSP 30 ML UDC PO PRN (13:14)
[2019-11-21] MEDS ORDERED: ONDANSETRON 4 MG OD TAB PO PRN (13:14)
[2019-11-21] MEDS: OXYCODONE HCL IR 5 MG TAB (IMMEDIATE RELEASE) PO PRN ×3 (13:43→22:29)
[2019-11-21] MEDS: KETOROLAC 30 MG/ML VIAL IV SCH ×2 (14:42→20:56)
[2019-11-21] MEDS: SODIUM CHLORIDE 0.9% 1000ML 1,000 ML IV SCH ×2 (14:43→23:45)
[2019-11-21] MEDS: CEFAZOLIN 2000MG 2,000 MG/15 ML SYR IV SCH (16:33)
--- NOTE | 2019-11-21 17:06 | Hospitalist Consultation ---
Date of Consultation November 21, 2019 Assessment & Plan (1) Neurogenic claudication due to lumbar spinal stenosis: - S/p lumbar procedure this morning. - Pain control per primary team. - DVT ppx: currently on hold. - PT/OT evaluation. - Monitor CBC daily to evaluate for acute blood loss anemia. (2) HTN (hypertension): - Continue home Nifedipine; holding HCTZ and Enalapril during operative period, can restart moi if renal function is stable. (3) Acid reflux disease: - Not currently on PPI. (4) Lung nodule: - Monitored as outpatient. (5) Rheumatoid arthritis: - Holding home Leflunomide. (6) DVT prophylaxis: - SCDs; holding pharmacologic ppx. Dispo: Med/surg; will continue to follow, please call with any questions. Supervising Physician Co-Signing Physician Notes I have seen and examined patient followed by Fiona Vieira PA-C and agree with the assessment and plan. My exam: General: Resting comfortably HEENT:PERRLA with EOMI; [place] conjunctiva Neck: Supple and nontender Cardiac: RRR Lungs: CTA bilaterally Abdomen: Bowel normoactive X 4; Nontender to palpation Extremities: Warm. No edema present Neuro: No focal weakness Skin: No rash History of Present Illness Reason for Consultation: Medical Management Attending Physician: Kiran Holley DO History of Present Illness Mr. Do is a 59 year old male with past medical history of rheumatoid arthritis, anxiety, chronic back pain, GERD, HTN, interstitial lung disease with lung nodule who presented for a planned lumbar procedure. Pt. is doing well post op. He has pain at incision site. Has melchor catheter, adequate urine output. Is not passing gas, last BM was yesterday. Allergies Allergy/AdvReac Type Severity Reaction Status Date / Time Ativan TABS Allergy Unknown unknown Uncoded 11/21/19 09:51 reaction Home Medications Home Medications Medication Instructions Recorded Confirmed Type lansoprazole 15 mg capsule,delayed 15 mg PO BID #60 cap 05/05/19 11/21/19 Rx release fluticasone propionate 50 2 sprays INTNAS BID #47.4 gm 05/09/19 11/21/19 Rx mcg/actuation nasal spray,suspension celecoxib 200 mg capsule 200 mg PO QAM 07/12/19 11/21/19 History krill oil 500 mg capsule 500 mg PO QAM cap 07/12/19 11/21/19 History multivitamin 1 tab PO QAM 07/12/19 11/21/19 History pregabalin 75 mg capsule 75 mg PO BID 07/12/19 11/21/19 History enalapril maleate 20 mg tablet 20 mg PO BID #180 tab 08/15/19 11/21/19 Rx sildenafil 50 mg tablet 50 mg PO DAILY PRN #30 tab 10/04/19 11/21/19 Rx hydrocodone 5 mg-acetaminophen 325 1 tab PO DAILY PRN 10/05/19 11/21/19 History mg tablet leflunomide 20 mg tablet 20 mg PO QAM 10/05/19 11/21/19 History cholecalciferol (vitamin D3) 1,000 unit PO QAM 10/31/19 11/21/19 History [Vitamin D3] hydrochlorothiazide 25 mg PO QAM 10/31/19 11/21/19 History nifedipine 60 mg PO QAM 10/31/19 11/21/19 History Patient History Medical History (Updated 11/21/19 @ 17:03 by Fiona Vieira PA-C) Anxiety per PCP records Arthritis Back pain B/L LE radiculopathy COPD (chronic obstructive pulmonary disease) per PCP records and imaging/patient denies/no inhalers GERD (gastroesophageal reflux disease) controlled Hypertension Interstitial lung disease per PCP records and imaging/patient denies/no inhalers Lung nodule under surveillance per PCP Rheumatoid arthritis per PCP records/on leflunomide Surgical History History of arthroscopy of left knee Hx of colonoscopy Hx of discectomy Hx of hernia repair Family History Mother Ovarian cancer Breast cancer Father Heart disease Hypertension Grandfather (Maternal) Myocardial infarction Social History Preferred Language: Senegalese Communication Ability: Effective Visual Impairment: No Limitations Hearing Ability: Normal Power Hammer Operator Required: No Beliefs That Will Affect Care: None marital status: Current Living Situation: Alone current occupational status: employed Feels Safe at Home: Yes Safety Concerns: Feels Safe At This Time Smoking Status: Former smoker Age Started Using Tobacco: 15 ; Age Quit Using Tobacco: 44 ; packs per day: 1.5 ; Cigarettes Per Day: 20-40 ; Do You Dip or Chew Tobacco: No ; Smoking End Date: 2002 ; Second Hand Exposure: No ; Hx Alcohol Use: No Hx Substance Use: No Childhood Exposure to Second-Hand Smoke: No Dental Care, Regularly: Yes Physical Activity Frequency: 3-4 Times per Week Seatbelt Use: always Sunscreen Use: No Review of Systems Review of Systems: All systems reviewed & are unremarkable except as noted in HPI & below Constitutional: no fever, no chills, no fatigue, no weakness and no anorexia Respiratory: no cough, no dyspnea, no dyspnea on exertion and no wheezing Cardiovascular: no chest pain, no palpitations and no edema Gastrointestinal: + constipation; no abdominal pain, no nausea and no vomiting Genitourinary: no difficulty urinating Musculoskeletal: + back pain; no joint pain Integumentary: no non-healing lesions Physical Exam Physical Exam: General: Resting comfortably HEENT: NC/AT; PERRLA with EOMI; [place] conjunctiva, MMM. No erythema of posterior pharynx Neck: Supple and nontender Cardiac: RRR Lungs: CTA bilaterally Abdomen: Bowel normoactive X 4; Nontender to palpation Extremities: Warm. No edema present Neuro: No focal weakness Skin: No rash Results & Data Vital Signs (Past 12 Hours) Vital Signs Temp Pulse Pulse Resp BP Pulse Ox 11/21/19 15:55 36.4 C L 63 16 126/76 96 11/21/19 14:39 36.5 C 66 16 134/87 97 11/21/19 13:22 36.4 C L 62 14 116/66 97 11/21/19 12:45 36.6 C 63 16 120/72 97 11/21/19 12:30 37.2 C 61 12 119/63 96 11/21/19 12:20 37.2 C 63 16 118/71 95 11/21/19 12:10 64 14 117/73 97 11/21/19 12:00 68 18 130/72 97 11/21/19 11:50 65 16 139/79 96 11/21/19 11:44 36.6 C 74 16 131/72 96 11/21/19 08:00 36.5 C 73 20 144/85 H 97 PG Care Time/CCT Total # of Minutes Spent Total Time Spent with Patient: Total time spent is greater than 50% in coordination of care (as documented) at patient's floor/unit and/or counseling patient:
[2019-11-21] MEDS: DOCUSATE SODIUM/SENNA 50/8.6MG TAB PO SCH (20:56)
[2019-11-21] MEDS: PREGABALIN 75 MG CAP PO SCH (20:58)
[2019-11-21] MEDS ORDERED: ENALAPRIL MALEATE 10 MG TAB PO SCH (21:00)
[2019-11-21] MEDS: LANSOPRAZOLE 15 MG PO SCH (21:50)
[2019-11-22] MEDS: KETOROLAC 30 MG/ML VIAL IV SCH ×2 (02:26→08:31)
[2019-11-22] MEDS: CEFAZOLIN 2000MG 2,000 MG/15 ML SYR IV SCH (02:26)
[2019-11-22] MEDS: OXYCODONE HCL IR 5 MG TAB (IMMEDIATE RELEASE) PO PRN ×6 (03:03→23:11)
[2019-11-22] MEDS: POLYETHYLENE (MIRALAX) 17 GM PACK PO SCH ×4 (05:43→23:11)
[2019-11-22 06:06] LABS: Basophils # (auto) 0.02 K/uL (0-0.2); Basophils % (auto) 0.2 %; Hematocrit (blood only) 34.6 % (42-52); Hemoglobin 11.7 g/dL (14.0-18.0); Immature Granulocytes # (auto) 0.05 K/uL (0.00-0.02); Immature Granulocytes % (auto) 0.4 %; Lymphocytes # (auto) 1.74 K/uL (1.2-3.4); Mean Corpuscular Hemoglobin 28.2 pg (25-34); Mean Corpuscular Hgb Conc 33.8 g/dL (32-36); Mean Corpuscular Volume 83.4 fL (80-100); Mean Platelet Volume 11.5 fL (7.4-10.4); Monocytes # (auto) 1.22 K/uL (0.11-0.59); Monocytes % (auto) 9.8 %; Neutrophils # (auto) 9.44 K/uL (1.4-6.5); Neutrophils % (auto) 75.6 %; Platelet Count 242 K/uL (130-400); RDW Coefficient of Variation 13.1 % (11.5-14.5); RDW Standard Deviation 39.7 fL (36.4-46.3); Red Blood Count 4.15 M/uL (4.7-6.1); White Blood Count 12.47 K/uL (4.8-10.8)
[2019-11-22 06:20] LABS: BUN Creatinine Ratio 18.4 (10-20); Calcium 8.5 mg/dl (8.5-10.1); Creatinine Clr Calc Pharmacy 86.4 ml/min; Est GFR (African American) 109.8; Est GFR (Non-African American) 94.7
--- NOTE | 2019-11-22 08:00 | Anesthesiology Progress Note ---
Date of Service November 22, 2019 Anesthesia Post Procedure Vital Signs Vital Signs: Temp Pulse Pulse Pulse Resp BP Pulse Ox 11/22/19 06:59 36.8 C 63 16 127/74 96 11/22/19 02:55 36.5 C 62 16 128/80 96 11/21/19 22:31 36.4 C L 68 14 127/75 97 11/21/19 19:48 36.5 C 61 16 131/77 96 11/21/19 15:55 36.4 C L 63 16 126/76 96 11/21/19 14:39 36.5 C 66 16 134/87 97 11/21/19 13:22 36.4 C L 62 14 116/66 97 11/21/19 12:45 36.6 C 63 16 120/72 97 11/21/19 12:30 37.2 C 61 12 119/63 96 11/21/19 12:20 37.2 C 63 16 118/71 95 11/21/19 12:10 64 14 117/73 97 11/21/19 12:00 68 18 130/72 97 11/21/19 11:50 65 16 139/79 96 11/21/19 11:44 36.6 C 74 16 131/72 96 Pain Intensity Lower Back: Pain Intensity: 3 (with cough/laugh) Transfer of Care Handoff Completed per policy Notes Mental Status: alert / awake / arousable Patient Amnestic to Procedure: Yes Nausea / Vomiting: adequately controlled Pain: adequately controlled Anesthetic Complications: no major complications apparent and Pt Satisfied with anesthetic care
[2019-11-22] MEDS: LANSOPRAZOLE 15 MG PO SCH ×2 (08:32→21:27)
[2019-11-22] MEDS: MULTIVITAMIN TAB PO SCH (08:32)
[2019-11-22] MEDS: PREGABALIN 75 MG CAP PO SCH ×2 (08:32→21:26)
[2019-11-22] MEDS: NIFEdipine EXTENDED REL 30 MG TABCR PO SCH (08:32)
--- NOTE | 2019-11-22 08:59 | Orthopedic Progress Note ---
Date of Service November 22, 2019 Assessment & Plan (1) Neurogenic claudication due to lumbar spinal stenosis: This time continue physical therapy monitor his STEPHANIE output anticipate discharge home in the next few days. Present on Admission?: Yes Subjective Back pain controlled leg symptoms markedly improved. Physical Exam Physical Exam: Patient is ambulating halls is excellent strength testing. Results & Data Vital Signs (Past 12 Hours) Vital Signs Temp Pulse Pulse Resp BP Pulse Ox 11/22/19 06:59 36.8 C 63 16 127/74 96 11/22/19 02:55 36.5 C 62 16 128/80 96 11/21/19 22:31 36.4 C L 68 14 127/75 97
[2019-11-22] MEDS ORDERED: hydroCHLOROthiazide 25 MG TAB PO SCH (09:00)
[2019-11-22] MEDS ORDERED: NON-FORMULARY MEDICATION (Krill Oil 500 MG) PO SCH (09:00)
--- NOTE | 2019-11-22 14:18 | Hospitalist Progress Note ---
Date of Service November 22, 2019 Assessment & Plan (1) Neurogenic claudication due to lumbar spinal stenosis: - S/p lumbar procedure on 11/21, POD#1. - Pain control per primary team. - DVT ppx: currently on hold. - PT/OT for discharge planning. (2) Acute blood loss anemia: - Hgb trending down post op as expected. - Will continue to trend daily. (3) HTN (hypertension): - Continue home Nifedipine; holding HCTZ and Enalapril during operative period. - BP has been stable without addition of home thiazide and ACEI -- he reports he lost ~50 lb on keto diet over the last year. Pt. may not require 3 anti- hypertensive agents following discharge to home. (4) Acid reflux disease: - PPI BID. (5) Lung nodule: - Monitored as outpatient. (6) Rheumatoid arthritis: - Holding home Leflunomide. (7) DVT prophylaxis: - SCDs; holding pharmacologic ppx due to recent back surgery. Dispo: Med/surg; will sign off, please call with any questions/concerns. Supervising Physician Co-Signing Physician Notes I have seen and examined patient with Fiona Vieira PA-C and agree with assessment and plan. Subjective Pt. is doing well, back pain is controlled. Is passing gas, no BM yet. Hall was removed, voiding well. Review of Systems Review of Systems: All systems reviewed & are unremarkable except as noted in HPI & below Constitutional: + fatigue and + weakness; no fever, no chills and no anorexia Respiratory: no cough, no dyspnea and no dyspnea on exertion Cardiovascular: no chest pain, no palpitations and no edema Gastrointestinal: + constipation; no abdominal pain and no nausea Genitourinary: no difficulty urinating Musculoskeletal: + back pain; no joint pain Physical Exam Physical Exam: General: Resting comfortably HEENT: NC/AT; PERRLA with EOMI; [place] conjunctiva, MMM. No erythema of posterior pharynx Neck: Supple and nontender Cardiac: RRR Lungs: CTA bilaterally Abdomen: Bowel normoactive X 4; Nontender to palpation Extremities: Warm. No edema present Neuro: No focal weakness Skin: No rash Results & Data Vital Signs (Past 12 Hours) Vital Signs Temp Pulse Resp BP Pulse Ox 11/22/19 06:59 36.8 C 63 16 127/74 96 11/22/19 02:55 36.5 C 62 16 128/80 96 Laboratory Results 11/22/19 11/22/19 Range/Units 05:38 05:38 WBC 12.47 H (4.8-10.8) K/uL RBC 4.15 L (4.7-6.1) M/uL Hgb 11.7 L (14.0-18.0) g/dL Hct 34.6 L (42-52) % MCV 83.4 (80-100) fL MCH 28.2 (25-34) pg MCHC 33.8 (32-36) g/dL RDW Std Deviation 39.7 (36.4-46.3) fL RDW Coeff of Moy 13.1 (11.5-14.5) % Plt Count 242 (130-400) K/uL MPV 11.5 H (7.4-10.4) fL Immature Gran % (Auto) 0.4 % Neut % (Auto) 75.6 % Lymph % (Auto) 14.0 % [place] % (Auto) 9.8 % Eos % (Auto) 0.0 % Baso % (Auto) 0.2 % Immature Gran # (Auto) 0.05 H (0.00-0.02) K/uL Neut # (Auto) 9.44 H (1.4-6.5) K/uL Lymph # (Auto) 1.74 (1.2-3.4) K/uL [place] # (Auto) 1.22 H (0.11-0.59) K/uL Eos # (Auto) 0.00 (0-0.5) K/uL Baso # (Auto) 0.02 (0-0.2) K/uL Sodium 137 (136-145) mmol/L Potassium 4.0 (3.5-5.1) mmol/L Chloride 108 H (98-107) mmol/L Carbon Dioxide 27 (21-32) mmol/L Anion Gap 2.0 L (3-11) BUN 16 (7-18) mg/dl Creatinine 0.85 (0.6-1.4) mg/dl Est Cr Clr Drug Dosing 86.4 ml/min Est GFR ( Amer) 109.8 Est GFR (Non-Af Amer) 94.7 BUN/Creatinine Ratio 18.4 (10-20) Glucose 119 H (70-99) mg/dl Calcium 8.5 (8.5-10.1) mg/dl PG Care Time/CCT Total # of Minutes Spent Total Time Spent with Patient: Total time spent is greater than 50% in coordination of care (as documented) at patient's floor/unit and/or counseling patient:
[2019-11-22] MEDS: DOCUSATE SODIUM/SENNA 50/8.6MG TAB PO SCH (21:26)
[2019-11-23] MEDS: OXYCODONE HCL IR 5 MG TAB (IMMEDIATE RELEASE) PO PRN ×3 (04:18→12:20)
[2019-11-23 05:52] LABS: Hematocrit (blood only) 34.2 % (42-52); Hemoglobin 11.3 g/dL (14.0-18.0); Mean Corpuscular Hemoglobin 28.2 pg (25-34); Mean Corpuscular Volume 85.3 fL (80-100); Mean Platelet Volume 11.1 fL (7.4-10.4); Platelet Count 251 K/uL (130-400); RDW Coefficient of Variation 13.4 % (11.5-14.5); RDW Standard Deviation 41.8 fL (36.4-46.3); Red Blood Count 4.01 M/uL (4.7-6.1); White Blood Count 7.36 K/uL (4.8-10.8)
[2019-11-23] MEDS: LANSOPRAZOLE 15 MG PO SCH (08:14)
[2019-11-23] MEDS: MULTIVITAMIN TAB PO SCH (08:15)
[2019-11-23] MEDS: NIFEdipine EXTENDED REL 30 MG TABCR PO SCH (08:15)
[2019-11-23] MEDS: PREGABALIN 75 MG CAP PO SCH (08:15)
--- NOTE | 2019-11-23 10:39 | Discharge Summary ---
Date of Service November 23, 2019 Admission HPI Per Admitting Provider This is a 5-year-old male well-known to me that presents with worsening back and leg pain. After failing extensive course of nonoperative care is here for surgical invention. Principal Diagnosis Lumbar spinal stenosis with neurogenic claudication Discharge Data Allergies Allergy/AdvReac Type Severity Reaction Status Date / Time Ativan TABS Allergy Unknown unknown Uncoded 11/21/19 09:51 reaction Consultations 11/21/19 13:14 Consult Case Management - Discharge Planning Routine Consult Hospitalist Routine Procedures Performed Operation Date: 11/21/19 09:25 Actual Procedures p L2-L3 Decompression and Fusion, Spinal Cord Monitoring(Not Applicable) - Kiran Holley DO s L3-S1 Hardware Removal(Not Applicable) - Kiran Holley DO Ordered Studies 11/21/19 09:25 FL fluoroscopy <1hr Routine FL lumbar spine 2-3V Routine Hospital Course (1) Neurogenic claudication due to lumbar spinal stenosis: Patient underwent lumbar decompression fusion tolerated this well was ifeoma en the orthopedic floor postoperative. Postop day 1 he was up and ambulating appropriately. He progressed to postop day #2. Excellent strength testing. STEPHANIE drain still significant. However would like to go home. We will have him discharged with home health for drain management. Discharge orders instructions from the chart for further review. Total Time Total Time Spent Total Time Spent (In Minutes): 20 minutes Discharge Plan Discharge Items Patient Disposition: Home - Home Health Services Reason For Visit: Radiculopathy, Lumbar Region Discharge Diagnosis: Lumbar spinal stenosis Activity: As commented below Non-emergency contact: Primary Care Provider Call non-emergency contact if: you have any medication questions Follow-up/Referrals: Maggy Carrington MD [Primary Care Provider] - Diet: Regular Addtl Attending Provider Instructions: ACTIVITY RECOMMENDATIONS: SELF CARE INSTRUCTIONS AFTER THORACIC/LUMBAR FUSIONS 1. You may walk to your tolerance. It is good exercise for your legs and back. Expect some back and intermittent leg aches and pains. 2. You may perform "counter-top" level activities (make a sandwich, geri with a project, etc.). 3. No bending or lifting of more than 10 pounds or back twisting of any nature (roll like a log when turning in bed). 4. You may ride in a car for 20-30 minutes at a time. No driving until after your first visit with your doctor. 5. Frequent changes of position and restricting sitting to 30 minutes at a time will help limit the amount of back spasms and stiffness you may experience. 6. You may discontinue the use of ambulatory aids (cane, crutches, etc.) once your strength and confidence allow. 7. You may dip stand loader the shower and let water strike your incision when you arrive home at least once daily. Do not take a tub bath, sit in a hot tub or go into a swimming pool until after your first recheck in the office. SPECIAL CARE INSTRUCTIONS: VERY IMPORTANT TO READ AND REVIEW A. Your surgical incision has been closed with a cosmetic suture under the skin that will dissolve in about 6 weeks. In 14 days, you can use a pair of clean scissors and cut the suture that is left outside of the skin at the ends of your incision. 1. The small skin tapes can be removed 7 days after surgery if they have not fallen off by that point. 2. You may keep the wound open to air as much as possible to promote healing after post-op day number 5 unless told otherwise by your doctor. 3. If you think the wound looks like it is becoming infected (redness or worsening drainage) and/or you are experiencing fever, chill or worsening back pain and muscle spasms, contact the office so that we may evaluate you as soon as possible. B. Complications are uncommon, but please contact us if you have any signs or symptoms of: 1. wound infection (fever higher than 102.5 degrees F, redness, separation of wound, drainage, or increasing pain from the incision) 2. blood clots in legs (pain, swelling, redness and warmth in legs) 3. urinary tract infection (fever higher than 102.5 degrees F, burning upon urination or increased frequency of urination) 4. nerve problems (inability to walk on your toes or heels, numbness, loss of bowel or bladder control) 5. any other symptoms that concern you C. Please call the office at if you have any concerns or questions about your operation or recovery. D. No smoking! Smoking drastically decreases the chance of a solid fusion. E. Do not take any anti-inflammatory medications (Indocin, Advil, Motrin, Aspirin, Naprosyn, etc.) as these may inhibit the chance of a solid fusion. Tylenol is okay to take for pain. MANAGING PAIN AFTER SPINAL SURGERY 1. Narcotic medication is intended for short-term use and will be provided for surgical pain. Surgical pain usually lasts for a period of 4-6 weeks. Narcotic medication includes Percocet, Vicodin, Darvocet, Tylenol #3 or Lortab. 2. Longer-term pain is more appropriately treated with non-narcotic medication such as Tylenol ES. 3. Muscle spasm is not appropriately treated with narcotics. Muscle relaxers such as Soma, Flexeril or Skelaxin can be used along with Tylenol ES. 4. Remember that we all live with some "aches and pains". This is not unusual or uncommon after an injury or as we get older. a. Back pain is expected and may include muscle spasms for 4 to 6 weeks after surgery. The pain should gradually improve. If the pain worsens for no apparent reason, please contact the office. b. Intermittent leg pain may also be experienced and should not be concerned about unless it worsens for no apparent reason. If so, please contact the office. 5. We will provide appropriate medication within the normal guidelines of their prescribed use. We will also be very cautious and aware of potential abuse and extended duration of patients' medication needs. a. Pain medications are for your comfort and to assist with sleep and rest so that the tissue can heal. They are not provided in order to return to normal activity and should not be used through the day. To do so or worsening pain at night can result from ongoing tissue damage and development of tolerance to the prescribed medicine. 6. Please allow 2-3 days to process refills. Prescriptions will not be mailed but must be picked up at the office. FOLLOW UP VISIT: Keep your scheduled follow-up appointment. Any questions, please call the office at . Pending Studies at Discharge: No Stand-Alone Forms: [facility], Opioid Pain Management, Smoking Cessation Medications and DC Order Prescriptions: New tramadol 50 mg tablet 50 mg PO Q6H PRN (Reason: pain, moderate) Qty: 30 RF: 0 oxycodone 5 mg tablet 5 mg PO Q6H PRN (Reason: pain, severe) Qty: 30 RF: 0 Continued lansoprazole 15 mg capsule,delayed release(DR/EC) 15 mg PO BID Qty: 60 RF: 2 fluticasone propionate 50 mcg/actuation spray,suspension 2 sprays INTNAS BID Qty: 47.4 RF: 5 enalapril maleate 20 mg tablet 20 mg PO BID Qty: 180 RF: 1 celecoxib [Celebrex] 200 mg capsule 200 mg PO QAM RF: 0 pregabalin [Lyrica] 75 mg capsule 75 mg PO BID RF: 0 multivitamin [Daily Multi-Vitamin] tablet 1 tab PO QAM RF: 0 krill oil 500 mg capsule 500 mg PO QAM RF: 0 sildenafil 50 mg tablet 50 mg PO DAILY PRN (Reason: erectile dysfunction) Qty: 30 RF: 3 hydrocodone-acetaminophen 5-325 mg tablet 1 tab PO DAILY PRN (Reason: pain) RF: 0 leflunomide 20 mg tablet 20 mg PO QAM RF: 0 cholecalciferol (vitamin D3) [Vitamin D3] 25 mcg (1,000 unit) Capsule 1,000 unit PO QAM RF: 0 hydrochlorothiazide 25 mg tablet 25 mg PO QAM RF: 0 nifedipine 60 mg tablet extended release 60 mg PO QAM RF: 0 Discharge Orders: Discharge Order (Routine); Ordered 11/23/19 Ordered By: Kiran Conti/Other Patient Handouts: Surgery Prevent DVT After Admission Data Admit Date/Time: 11/21/19 11:49 Attending Provider: Kiran Holley Admit Provider: Kiran Holley Primary Care Provider: Maggy Carrington V. Other Providers: Omar Aguilar Other Interventions: Discharge Summary Assessment (RN) Last Done: 11/23/19 10:26
== END 2019-11-23 12:31 | disposition home health service (06) | DRG 454 ==
LOC: ASU 07:54 → 3E 11:49